=== PATIENT | male | born 1935 | race Caucasian/White ===

== ENCOUNTER 2024-10-20 20:58 | Emergency (ER) | payer MEDICARE, BC ==
[~2024-10-20] VITALS: Ht 190.5 cm; Wt 131.5 kg
[~2024-10-20 20:58] MED LIST: ASPI-807 PO; RABE20TA18 PO; ROSU10TA2 PO; SILO4CAP PO
[2024-10-20 22:12] LABS: BASOPHILS % (AUTO) 1.1 % (0.0-2.0); EOSINOPHILS # (AUTO) 0.2 K/uL (0.0-0.7); EOSINOPHILS % (AUTO) 5.3 % (0.0-6.0); HEMATOCRIT 27 % (39-51); HEMOGLOBIN 8.2 g/dL (13.5-17.5); LYMPHOCYTES # (AUTO) 0.7 K/uL (0.8-4.8); LYMPHOCYTES % (AUTO) 16.7 % (20.0-44.0); MEAN CORPUSCULAR HEMOGLOBIN 29 PG (26.0-33.0); MEAN CORPUSCULAR HGB CONC 31 g/dl (31.0-36.0); MEAN CORPUSCULAR VOLUME 95 fL (80-96); MONOCYTES # (AUTO) 0.6 K/uL (0.1-1.30); MONOCYTES % (AUTO) 14.8 % (2.0-12.0); NEUTROPHILS # (AUTO) 2.5 K/uL (1.8-8.9); NEUTROPHILS % (AUTO) 62.1 % (43.0-81.0); PLATELET COUNT (AUTO) 209 K/uL (150-450); RED BLOOD CELL COUNT(AUTO) 2.82 MIL/uL (4.5-6.0); RED CELL DISTRIBUTION WIDTH 21.8 % (11.5-15.0)
[2024-10-20 22:30] LABS: ALANINE AMINOTRANSFERASE 21 U/L (12-78); ALBUMIN 3.3 g/dL (3.4-5.0); ALKALINE PHOSPHATASE 78 U/L (46-116); ASPARTATE AMINOTRANSFERASE 16 U/L (15-37); BILIRUBIN,TOTAL 1.2 mg/dL (0.2-1.0); CALCIUM, SERUM 8.4 mg/dL (8.5-10.1); CARBON DIOXIDE 34 mmol/L (21-32); CHLORIDE 106 mmol/L (98-107); CREATININE 1.6 mg/dL (0.6-1.3); GLUCOSE 122 mg/dL (74-106); NT-PRO BNP 426 pg/mL (0-125); POTASSIUM 4.3 mmol/L (3.5-5.1); SODIUM SERUM 140 mmol/L (136-145); TOTAL PROTEIN, SERUM 6.1 g/dL (6.4-8.2); UREA NITROGEN, BLOOD 42 mg/dL (7-18)
[2024-10-21 00:44] VITALS: BP 127/58; TEMP 98.4; O2SAT 97
== END 2024-10-21 00:44 | disposition left against medical advice (07) ==
LOC: ER 21:06
DX: S80.01XA Contusion of right knee, initial encounter (principal); M25.461 Effusion, right knee; K21.9 Gastro-esophageal reflux disease without esophagitis; N40.0 Benign prostatic hyperplasia without lower urinary tract symptoms; R51.9 Headache, unspecified; R07.9 Chest pain, unspecified; Z79.82 Long term (current) use of aspirin; Z79.899 Other long term (current) drug therapy; Z90.49 Acquired absence of other specified parts of digestive tract; W01.0XXA Fall on same level from slipping, tripping and stumbling without subsequent striking against object, initial encounter; Y93.89 Activity, other specified; Y92.098 Other place in other non-institutional residence as the place of occurrence of the external cause; Y99.8 Other external cause status
CPT/HCPCS: 36415; 70450-TC; 71045-TC; 73080-TC; 73700-TC; 80053-TC; 83880; 84484-TC; 85025-TC

== ENCOUNTER 2024-12-20 08:34 | Inpatient (IN) | payer MEDICARE, BC ==
[~2024-12-20] VITALS: Ht 188 cm; Wt 114.3 kg
[2024-12-20] MEDS: BACI/NEOM/POLY B OINT PKT 1 UDPKT PACKET TP ONE (09:00)
[2024-12-20] MEDS: LIDOCAINE 1% INJ 50 ML MDV IJ ONE (09:00)
[2024-12-20 09:21] LABS: BASOPHILS # (AUTO) 0.1 K/uL (0.0-0.2); BASOPHILS % (AUTO) 1.4 % (0.0-2.0); EOSINOPHILS # (AUTO) 0.2 K/uL (0.0-0.7); EOSINOPHILS % (AUTO) 5.7 % (0.0-6.0); HEMATOCRIT 22 % (39-51); HEMOGLOBIN 7.1 g/dL (13.5-17.5); LYMPHOCYTES # (AUTO) 0.6 K/uL (0.8-4.8); LYMPHOCYTES % (AUTO) 16.2 % (20.0-44.0); MEAN CORPUSCULAR HEMOGLOBIN 27 PG (26.0-33.0); MEAN CORPUSCULAR HGB CONC 32 g/dl (31.0-36.0); MEAN CORPUSCULAR VOLUME 85 fL (80-96); MONOCYTES # (AUTO) 0.6 K/uL (0.1-1.30); MONOCYTES % (AUTO) 16.2 % (2.0-12.0); NEUTROPHILS # (AUTO) 2.3 K/uL (1.8-8.9); NEUTROPHILS % (AUTO) 60.5 % (43.0-81.0); PLATELET COUNT (AUTO) 249 K/uL (150-450); RED CELL DISTRIBUTION WIDTH 17.7 % (11.5-15.0); WHITE BLOOD COUNT (AUTO) 3.9 K/uL (4.3-11.0)
[2024-12-20 09:40] LABS: INR 0.97 (0.91-1.10); PARTIAL THROMBOPLASTIN TIME 22.3 SEC (24.3-34.3); PROTHROMBIN TIME 10.3 SECS (9.2-11.1)
[2024-12-20 09:48] LABS: LACTIC ACID 1.7 mmol/L (0.4-2.0)
[2024-12-20 09:54] LABS: CALCIUM, SERUM 8.7 mg/dL (8.5-10.1); CARBON DIOXIDE 29 mmol/L (21-32); CHLORIDE 106 mmol/L (98-107); GLUCOSE 108 mg/dL (74-106); POTASSIUM 3.7 mmol/L (3.5-5.1); SODIUM SERUM 143 mmol/L (136-145); THYROID STIMULATING HORMONE 2.73 uIU/mL (0.358-3.74); UREA NITROGEN, BLOOD 47 mg/dL (7-18)
[2024-12-20 09:57] LABS: ALANINE AMINOTRANSFERASE 19 U/L (12-78); ALBUMIN 3.2 g/dL (3.4-5.0); ALKALINE PHOSPHATASE 56 U/L (46-116); ASPARTATE AMINOTRANSFERASE 16 U/L (15-37); BILIRUBIN,DIRECT 0.2 mg/dL (0.0-0.2); BILIRUBIN,TOTAL 0.4 mg/dL (0.2-1.0); TOTAL PROTEIN, SERUM 5.9 g/dL (6.4-8.2)
[2024-12-20] MEDS: TDAP [DIPH/PERTUSSIS/TET] 0.5 ML VIAL IM ONE (10:00)
[2024-12-20] MEDS ORDERED: TDAP [DIPH/PERTUSSIS/TET] 0.5 ML VIAL IM ONE (10:09)
[2024-12-20] MEDS ORDERED: MIDO10TA PO (10:49)
[2024-12-20] MEDS ORDERED: UBID100C13 PO (10:49)
[2024-12-20] MEDS ORDERED: TORS20TA3 PO (10:49)
[2024-12-20] MEDS ORDERED: CYAN-51 PO (10:49)
[2024-12-20] MEDS ORDERED: CHOL100043 PO (10:49)
[2024-12-20] MEDS ORDERED: VITA100012 PO (10:49)
[2024-12-20] MEDS ORDERED: [UNRECOGNIZED DRUG - OTHER] PO (10:49)
[2024-12-20] MEDS ORDERED: NA P133E RC (10:49)
[2024-12-20] MEDS ORDERED: MELA3CAP2 PO (10:49)
[2024-12-20] MEDS ORDERED: FINA5TAB11 PO (10:49)
[2024-12-20] MEDS ORDERED: ZINC100T2 PO (10:49)
[2024-12-20] MEDS ORDERED: CALC-903 PO (10:49)
[2024-12-20] MEDS ORDERED: MENT71OI2 TP (10:49)
[2024-12-20] MEDS ORDERED: MAG-135 PO (10:49)
[2024-12-20] MEDS ORDERED: [UNRECOGNIZED DRUG - OTHER] PO (10:49)
[2024-12-20] MEDS ORDERED: AZEL137S7 BNOSTRILS (10:49)
[2024-12-20] MEDS ORDERED: ATOR20TA PO (10:49)
[2024-12-20] MEDS ORDERED: TAMS-12 PO (10:49)
[2024-12-20] MEDS ORDERED: OMEG-167 PO (10:49)
[2024-12-20] MEDS ORDERED: [UNRECOGNIZED DRUG - OTHER] PO (10:49)
[2024-12-20] MEDS ORDERED: MAGN250T10 PO (10:49)
[2024-12-20] MEDS ORDERED: VIT1CAPS9 PO (10:49)
[2024-12-20] MEDS ORDERED: POTA-10 PO (10:49)
[2024-12-20] MEDS ORDERED: BUPR75TA21 PO (10:49)
[2024-12-20] MEDS ORDERED: CITA10TA9 PO (10:49)
[2024-12-20] MEDS ORDERED: FERR325T23 PO (10:49)
[2024-12-20] MEDS ORDERED: ALLO100T PO (10:49)
[2024-12-20] MEDS ORDERED: NYST500P2 TP (10:49)
[2024-12-20] MEDS ORDERED: BISA10SU11 RC (10:49)
[2024-12-20] MEDS ORDERED: SENN8.6T19 PO (10:49)
[2024-12-20] MEDS ORDERED: [UNRECOGNIZED DRUG - OTHER] PO (10:49)
[2024-12-20] MEDS ORDERED: METO2.5T7 PO (10:49)
[2024-12-20] MEDS ORDERED: DOCU100T2 PO (10:49)
[2024-12-20] MEDS ORDERED: MAGN400O6 PO (10:49)
[2024-12-20] MEDS ORDERED: ASCO100058 PO (10:49)
[2024-12-20] MEDS ORDERED: FLUT16SP BNOSTRILS (10:49)
[2024-12-20] MEDS ORDERED: POLY17PO4 PO (10:49)
[2024-12-20] MEDS ORDERED: ONDANSETRON HCL/PF 4 MG/2 ML VIAL IVP PRN (12:00)
[2024-12-20] MEDS ORDERED: Z GUARD REMEDY 4 OZ OINT TP PRN (12:00)
[2024-12-20] MEDS ORDERED: BISACODYL SUPP (10 MG) 10 MG/SUPP.RECT SUPP.RECT RC PRN (12:00)
[2024-12-20 12:15] VITALS: BP 131/65; TEMP 97.7; O2SAT 98
[2024-12-20] MEDS ORDERED: ASPIRIN EC 81 MG TABLET.DR PO SCH (13:00)
[2024-12-20 16:00] VITALS: BP 120/57; TEMP 97.7; O2SAT 98
[2024-12-20] MEDS: buPROPion 75 MG TABLET PO SCH (16:24)
[2024-12-20] MEDS: MIDODRINE HCL (5MG) 5 MG TABLET PO SCH (16:25)
[2024-12-20] MEDS: DOCUSATE SODIUM 100 MG CAPSULE PO SCH (16:25)
[2024-12-20] MEDS: AZELASTINE NASAL SPRAY 30 ML BOTTLE NS SCH (16:30)
[2024-12-20 20:00] VITALS: BP 114/57; TEMP 98.1; O2SAT 97
[2024-12-20] MEDS: IV NS 0.9% 1,000 ML IV PRN (21:34)
[2024-12-20] MEDS: ACETAMINOPHEN 325 MG TABLET PO PRN (22:04)
[2024-12-20] MEDS: TAMSULOSIN 0.4 MG CAP.SR.24H PO SCH (22:05)
[2024-12-20] MEDS: SENNOSIDES 8.6 MG TABLET PO SCH (22:05)
[2024-12-21] VITALS (10 sets, daily range): BP systolic 101–147; BP diastolic 51–74; TEMP 97.7–98.8; O2SAT 97–98
[2024-12-21 07:04] LABS: BASOPHILS % (AUTO) 0.9 % (0.0-2.0); EOSINOPHILS # (AUTO) 0.2 K/uL (0.0-0.7); EOSINOPHILS % (AUTO) 3.8 % (0.0-6.0); HEMATOCRIT 22 % (39-51); HEMOGLOBIN 7.2 g/dL (13.5-17.5); LYMPHOCYTES # (AUTO) 0.8 K/uL (0.8-4.8); LYMPHOCYTES % (AUTO) 17.4 % (20.0-44.0); MEAN CORPUSCULAR HEMOGLOBIN 27 PG (26.0-33.0); MEAN CORPUSCULAR HGB CONC 32 g/dl (31.0-36.0); MEAN CORPUSCULAR VOLUME 85 fL (80-96); MONOCYTES # (AUTO) 0.7 K/uL (0.1-1.30); MONOCYTES % (AUTO) 16.6 % (2.0-12.0); NEUTROPHILS # (AUTO) 2.6 K/uL (1.8-8.9); NEUTROPHILS % (AUTO) 61.3 % (43.0-81.0); PLATELET COUNT (AUTO) 229 K/uL (150-450); RED BLOOD CELL COUNT(AUTO) 2.66 MIL/uL (4.5-6.0); RED CELL DISTRIBUTION WIDTH 17.6 % (11.5-15.0); WHITE BLOOD COUNT (AUTO) 4.3 K/uL (4.3-11.0)
[2024-12-21 07:21] LABS: CREATININE 1.5 mg/dL (0.6-1.3); MAGNESIUM 2.7 mg/dL (1.8-2.4); PHOSPHORUS 3.8 mg/dL (2.5-4.9); POTASSIUM 3.8 mmol/L (3.5-5.1)
[2024-12-21] MEDS ORDERED: CYANOCOBALAMIN 500 MCG TABLET PO SCH (09:00)
[2024-12-21] MEDS: FLUTICASONE PROPIONATE 16 GM BOTTLE NS SCH (09:36)
[2024-12-21] MEDS: CHOLECALCIFEROL 1,000 UNIT TABLET (VIT D3) PO SCH (09:37)
[2024-12-21] MEDS: VITAMIN E 400 UNIT CAPSULE PO SCH (09:37)
[2024-12-21] MEDS: CITALOPRAM HYDROBROMIDE 10 MG TABLET PO SCH (09:38)
[2024-12-21] MEDS: CALCIUM CARBONATE 500 MG TAB.CHEW PO SCH (09:38)
[2024-12-21] MEDS: ATORVASTATIN 10 MG TABLET PO SCH (09:39)
[2024-12-21] MEDS: FINASTERIDE (5 MG) 5 MG TABLET PO SCH (09:39)
[2024-12-21] MEDS: ALLOPURINOL 100 MG TABLET PO SCH (09:39)
[2024-12-21 18:56] LABS: BASOPHILS % (AUTO) 0.8 % (0.0-2.0); EOSINOPHILS # (AUTO) 0.2 K/uL (0.0-0.7); EOSINOPHILS % (AUTO) 3.9 % (0.0-6.0); HEMATOCRIT 25 % (39-51); HEMOGLOBIN 7.7 g/dL (13.5-17.5); LYMPHOCYTES % (AUTO) 16.8 % (20.0-44.0); MEAN CORPUSCULAR HEMOGLOBIN 26 PG (26.0-33.0); MEAN CORPUSCULAR HGB CONC 31 g/dl (31.0-36.0); MEAN CORPUSCULAR VOLUME 86 fL (80-96); MONOCYTES # (AUTO) 0.7 K/uL (0.1-1.30); MONOCYTES % (AUTO) 12.8 % (2.0-12.0); NEUTROPHILS # (AUTO) 3.8 K/uL (1.8-8.9); NEUTROPHILS % (AUTO) 65.7 % (43.0-81.0); PLATELET COUNT (AUTO) 234 K/uL (150-450); RED BLOOD CELL COUNT(AUTO) 2.92 MIL/uL (4.5-6.0); RED CELL DISTRIBUTION WIDTH 18.7 % (11.5-15.0); WHITE BLOOD COUNT (AUTO) 5.7 K/uL (4.3-11.0)
[2024-12-21 19:59] LABS: ANISOCYTOSIS 1+; BAND % (MANUAL) 2 % (0.0-5.0); BASOPHILS % (MANUAL) 1 % (0.0-2.0); EOSINOPHILS % (MANUAL) 6 % (0-4); LYMPHOCYTES % (MANUAL) 13 % (16-48); MONOCYTES % (MANUAL) 9 % (0-11.0); NEUTROPHILS % (MANUAL) 69 (42-76); OVALOCYTES 1+; PLATELET ESTIMATE ADEQUATE
[2024-12-22] VITALS: BP 140/58; TEMP 97.9; O2SAT 96
[2024-12-22 04:00] VITALS: BP 137/62; TEMP 97.9; O2SAT 95
[2024-12-22 08:00] VITALS: BP 130/68; TEMP 97.8; O2SAT 98
[2024-12-22] MEDS: FERROUS SULFATE (325 MG) 325 MG/TAB TABLET PO SCH (10:14)
[2024-12-22 11:36] LABS: BASOPHILS % (AUTO) 1.1 % (0.0-2.0); EOSINOPHILS # (AUTO) 0.2 K/uL (0.0-0.7); EOSINOPHILS % (AUTO) 5.2 % (0.0-6.0); HEMATOCRIT 25 % (39-51); HEMOGLOBIN 7.7 g/dL (13.5-17.5); LYMPHOCYTES # (AUTO) 0.6 K/uL (0.8-4.8); LYMPHOCYTES % (AUTO) 14.8 % (20.0-44.0); MEAN CORPUSCULAR HEMOGLOBIN 26 PG (26.0-33.0); MEAN CORPUSCULAR HGB CONC 31 g/dl (31.0-36.0); MEAN CORPUSCULAR VOLUME 85 fL (80-96); MONOCYTES # (AUTO) 0.7 K/uL (0.1-1.30); NEUTROPHILS # (AUTO) 2.8 K/uL (1.8-8.9); NEUTROPHILS % (AUTO) 63.9 % (43.0-81.0); PLATELET COUNT (AUTO) 230 K/uL (150-450); RED CELL DISTRIBUTION WIDTH 18.2 % (11.5-15.0); WHITE BLOOD COUNT (AUTO) 4.3 K/uL (4.3-11.0)
[2024-12-22 12:00] VITALS: BP 130/68; TEMP 97.8; O2SAT 98
[2024-12-22 16:00] VITALS: BP 141/78; TEMP 97.8; O2SAT 98
[2024-12-22 20:00] VITALS: BP 145/64; TEMP 98.6; O2SAT 98
[2024-12-23] VITALS (13 sets, daily range): BP systolic 77–153; BP diastolic 50–67; TEMP 97.5–98.9; O2SAT 96–100
[2024-12-23 06:45] LABS: ALBUMIN 2.8 g/dL (3.4-5.0); BILIRUBIN,TOTAL 0.5 mg/dL (0.2-1.0); CALCIUM, SERUM 8.5 mg/dL (8.5-10.1); CREATININE 1.3 mg/dL (0.6-1.3); MAGNESIUM 2.5 mg/dL (1.8-2.4); POTASSIUM 4.2 mmol/L (3.5-5.1); TOTAL PROTEIN, SERUM 5.6 g/dL (6.4-8.2)
[2024-12-23 07:00] LABS: BASOPHILS % (AUTO) 0.9 % (0.0-2.0); EOSINOPHILS # (AUTO) 0.2 K/uL (0.0-0.7); EOSINOPHILS % (AUTO) 4.9 % (0.0-6.0); HEMATOCRIT 23 % (39-51); HEMOGLOBIN 7.3 g/dL (13.5-17.5); LYMPHOCYTES # (AUTO) 0.6 K/uL (0.8-4.8); LYMPHOCYTES % (AUTO) 14.1 % (20.0-44.0); MEAN CORPUSCULAR HEMOGLOBIN 27 PG (26.0-33.0); MEAN CORPUSCULAR HGB CONC 32 g/dl (31.0-36.0); MEAN CORPUSCULAR VOLUME 84 fL (80-96); MONOCYTES # (AUTO) 0.6 K/uL (0.1-1.30); MONOCYTES % (AUTO) 14.7 % (2.0-12.0); NEUTROPHILS # (AUTO) 2.7 K/uL (1.8-8.9); NEUTROPHILS % (AUTO) 65.4 % (43.0-81.0); PLATELET COUNT (AUTO) 221 K/uL (150-450); RED BLOOD CELL COUNT(AUTO) 2.73 MIL/uL (4.5-6.0); RED CELL DISTRIBUTION WIDTH 17.6 % (11.5-15.0); WHITE BLOOD COUNT (AUTO) 4.2 K/uL (4.3-11.0)
[2024-12-23] MEDS ORDERED: ACETAMINOPHEN 650 MG/20.3 ML UDC NG PRN (23:00)
[2024-12-23] MEDS: ACETAMINOPHEN 325 MG TABLET PO PRN (23:11)
[2024-12-23 23:46] LABS: BASOPHILS # (AUTO) 0.1 K/uL (0.0-0.2); BASOPHILS % (AUTO) 0.9 % (0.0-2.0); EOSINOPHILS # (AUTO) 0.2 K/uL (0.0-0.7); EOSINOPHILS % (AUTO) 3.5 % (0.0-6.0); HEMATOCRIT 24 % (39-51); HEMOGLOBIN 7.5 g/dL (13.5-17.5); LYMPHOCYTES # (AUTO) 0.6 K/uL (0.8-4.8); LYMPHOCYTES % (AUTO) 9.1 % (20.0-44.0); MEAN CORPUSCULAR HEMOGLOBIN 27 PG (26.0-33.0); MEAN CORPUSCULAR HGB CONC 31 g/dl (31.0-36.0); MEAN CORPUSCULAR VOLUME 86 fL (80-96); MONOCYTES # (AUTO) 0.8 K/uL (0.1-1.30); MONOCYTES % (AUTO) 13.8 % (2.0-12.0); NEUTROPHILS # (AUTO) 4.5 K/uL (1.8-8.9); NEUTROPHILS % (AUTO) 72.7 % (43.0-81.0); PLATELET COUNT (AUTO) 202 K/uL (150-450); RED BLOOD CELL COUNT(AUTO) 2.83 MIL/uL (4.5-6.0); RED CELL DISTRIBUTION WIDTH 17.1 % (11.5-15.0); WHITE BLOOD COUNT (AUTO) 6.1 K/uL (4.3-11.0)
[2024-12-24] VITALS: BP 135/57; TEMP 97.8; O2SAT 98
[2024-12-24 04:00] VITALS: BP 153/74; TEMP 98.8; O2SAT 98
[2024-12-24 08:00] VITALS: BP 145/96; TEMP 98.8; O2SAT 97
[2024-12-24 08:11] LABS: PTH, INTACT 31 pg/mL (15-65)
[2024-12-24 10:09] LABS: *SPE A/G RATIO 1.3 (0.7-1.7); *SPE ALBUMIN 2.9 g/dL (2.9-4.4); *SPE ALPHA-1-GLOBULIN 0.2 g/dL (0.0-0.4); *SPE ALPHA-2-GLOBULIN 0.6 g/dL (0.4-1.0); *SPE BETA GLOBULIN 0.8 g/dL (0.7-1.3); *SPE GLOBULIN, TOTAL 2.3 g/dL (2.2-3.9); *SPE M-SPIKE Not Observed g/dL (Not Observed); *SPE PROTEIN TOTAL 5.2 g/dL (6.0-8.5); *SPEGAMMA GLOBULIN 0.6 g/dL (0.4-1.8)
[2024-12-24] MEDS ORDERED: PANT40TA2 PO (11:01)
[2024-12-24 12:00] VITALS: BP 133/90; TEMP 98; O2SAT 97
== END 2024-12-24 16:45 | DRG 74 ==
LOC: ER 08:47 → TELE1 11:28 → MEDSG1 12-23 16:16
PROVIDERS: ADMIT Internal Medicine; ATTEND Internal Medicine
PROC: 30233N1 Transfusion of Nonautologous Red Blood Cells into Peripheral Vein, Percutaneous Approach (ICD-10-PCS; principal; 2024-12-21)
DX: G90.89 Other disorders of autonomic nervous system (principal); N17.9 Acute kidney failure, unspecified; D62 Acute posthemorrhagic anemia; E44.0 Moderate protein-calorie malnutrition; N18.30 Chronic kidney disease, stage 3 unspecified; I13.10 Hypertensive heart and chronic kidney disease without heart failure, with stage 1 through stage 4 chronic kidney disease, or unspecified chronic kidney disease; N40.0 Benign prostatic hyperplasia without lower urinary tract symptoms; K57.30 Diverticulosis of large intestine without perforation or abscess without bleeding; S01.01XA Laceration without foreign body of scalp, initial encounter; W18.30XA Fall on same level, unspecified, initial encounter; Y92.099 Unspecified place in other non-institutional residence as the place of occurrence of the external cause; Z79.82 Long term (current) use of aspirin; K21.9 Gastro-esophageal reflux disease without esophagitis; M89.8X9 Other specified disorders of bone, unspecified site; Z90.49 Acquired absence of other specified parts of digestive tract; Z98.890 Other specified postprocedural states; Z79.899 Other long term (current) drug therapy; D63.1 Anemia in chronic kidney disease; E78.5 Hyperlipidemia, unspecified; E88.09 Other disorders of plasma-protein metabolism, not elsewhere classified
CPT/HCPCS: 36415; 70450-TC; 71045-TC; 72125-TC; 76770-TC; 80048-TC; 80053-TC; 80076-TC; 82550-TC; 83605-TC; 83735-TC; 83880; 83970; 84100-TC; 84155; 84165; 84443-TC; 84484-TC; 85025-TC; 85730-TC; 86850-TC; 87040-TC; 90715; 93307-TC; 97116-TC; 97530-TC; A4223; A6403; G0378; J7030; J7040; P9016